=== PATIENT | female | born 1940 | race Caucasian/White ===

== ENCOUNTER → 2016-05-13 | Outpatient (CLI) | payer OTHER ==
--- NOTE | 2016-05-13 07:47 | REP ---
Clinical: Hypertension and chronic medical renal disease. Technique: Barrera scale and color Doppler evaluation of the kidneys and renal vasculature using curved array transducer. Findings: The kidneys are essentially normal in contour size and echogenicity and reniform shape without hydronephrosis, nephrolithiasis, cystic or renal mass lesion. Right kidney measures 11.0 x 4.4 x 5.1 cm . Left kidney measures 11.2 x 5.3 x 5.3 cm . Bladder is incompletely distended and grossly normal by current evaluation. Color Doppler evaluation of the renal vasculature demonstrates normal arterial wave patterns, velocities, renal aortic ratios, resistive indices and the acceleration time. No sonographic evidence for renal arterial stenosis noted. Renal vein is patent. Right Kidney: Peak arterial velocity: 143 cm/sec . Renal aortic ratio: 1.34 . Resistive indices: 0.83 - 0.84 . Acceleration times: 0.030 - 0.056 . Left kidney: Peak arterial velocity: 146 . Renal aortic ratio: 1.37 . Resistive indices: 0.76 - 0.85 . Acceleration times: 0.034 - 0.044 . Impression: Relatively normal appearance of the bilateral kidneys. No sonographic evidence to suggest renal arterial stenosis. Signed by Heber Garcia MD 05/13/2016 07:39 A
== END | disposition home or self-care (01) ==
LOC: M RAD 06:19
PROVIDERS: ATTEND Internal Medicine Nephrology
DX: I15.0 Renovascular hypertension (principal); N18.3 Chronic kidney disease, stage 3 (moderate)

== ENCOUNTER → 2018-02-21 | Outpatient (CLI) | payer OTHER | LOC: M WHC 10:14 | DX: Z12.31 Encounter for screening mammogram for malignant neoplasm of breast (principal) | CPT/HCPCS: 77067 ==

== ENCOUNTER → 2018-10-02 | Outpatient (CLI) | payer MEDICARE ==
[~2018-10-02] MED LIST: AMLO25TA PO; ASPI81TA85 PO; ATOR40TA75 PO; BASA100I SC; E-Z-GAS II EFFERVESCENT PACKET (SODIUM BICARB./CITRIC ACID/SIMETHICONE) As Ordered ONE; E-Z-HD 98% w/w 340GM SUSP BTL As Ordered ONE; E-Z-PAQUE 96% w/w SUSP 176GM BTL As Ordered ONE; FURO40TA2 PO; GABA-845 PO; INSUH10VL SC; LEVO75TA4 PO; LOSA100T50 PO; METO37.5 PO; MULTCAP PO; OMEP40CA2 PO; TRUL10IN SC; TYLE325T5 PO; VITA200016 PO
--- NOTE | 2018-10-03 16:42 | REP ---
Examination Requested: Esophagram Barium Swallow Reason For Exam/Comment: Dysphasia Esophagram: The procedure was performed Susan Rubin, OTONIEL, under the direct supervision of Dr. Garcia. The images were reviewed with Dr. Garcia. A single PA chest x-ray is submitted as a cigarette lighter repairer film. There is a nodular density in the lower lung zone at the midclavicular line that appears stable since the previous chest x-ray dated 03/23/2011. Liquid barium and gas producing granules were given in the erect position as well as liquid barium in the prone oblique position, in order to perform a double contrast esophagram examination. Oral and pharyngeal stages of the examination were unremarkable. Esophageal transport is less then prompt and efficient with tertiary waves seen throughout the entire esophagus with to-and-fro mechanism. Delayed esophageal emptying was noted. There is no esophagitis, or mucosal ring noted. There is no hiatal hernia noted. Gastroesophageal reflux was not observed throughout the course of the exam. Impression: 1. Presbyesophagus with delayed emptying. 0.9 minutes of fluoroscopy time was utilized for this procedure. Some fluoroscopic images are performed with last image hold technology. These images require no additional radiation. Reviewed by OTONIEL Machado 10/02/2018 04:02 P Electronically Signed by Heber Garcia MD 10/03/2018 04:34 P
== END ==
LOC: M RAD 08:00
PROVIDERS: ATTEND Internal Medicine Gastroenterology
DX: K22.8 Other specified diseases of esophagus (principal)

== ENCOUNTER → 2019-02-17 | Outpatient (CLI) | payer MEDICARE ==
[~2019-02-17] MED LIST changes: -E-Z-GAS II EFFERVESCENT PACKET (SODIUM BICARB./CITRIC ACID/SIMETHICONE) As Ordered ONE; -E-Z-HD 98% w/w 340GM SUSP BTL As Ordered ONE; -E-Z-PAQUE 96% w/w SUSP 176GM BTL As Ordered ONE; -OMEP40CA2 PO; +OMEP40CA97 PO
--- NOTE | 2019-02-17 16:57 | REP ---
Right ankle: Four views. History: Pain. No recent injury. Right ankle pain. Findings: There is diffuse osteopenia. Ankle mortise is intact. Anterolateral soft tissue swelling and distal calf swelling are seen. There is Achilles and plantar calcaneal spurring. No fracture or subluxation is seen. No erosive changes noted. Impression: Heel spurring and diffuse swelling. Diffuse osteopenia. No acute bony abnormality. Electronically Signed by Miguel Blakely MD 02/17/2019 04:49 P
== END ==
LOC: M ADAMS 12:26
PROVIDERS: ATTEND Physician Assistant Medical
DX: M25.571 Pain in right ankle and joints of right foot (principal); M85.80 Other specified disorders of bone density and structure, unspecified site; M77.31 Calcaneal spur, right foot

== ENCOUNTER → 2019-05-07 | Outpatient (CLI) | payer MEDICARE ==
--- NOTE | 2019-05-07 16:09 | REPMRS ---
Patient History The patient states she has not had a clinical breast exam in over a year. Family history of breast cancer at age 35 in daughter. Digital Woman Screen Mammo: May 07, 2019 - Exam #: [id number] Bilateral CC and MLO view(s) were taken. Technologist: Keri Major, Technologist Prior study comparison: February 21, 2018, bilateral digital woman screen mammo performed at [facility]. February 01, 2017, digital woman screen mammo performed at [facility]. January 02, 2016, digital woman screen mammo performed at [facility]. FINDINGS: There are scattered fibroglandular densities. There is a large dense benign calcification again noted on the left. There has been no change in the appearance of the mammogram from the prior studies. There is a mild amount of scattered fibroglandular density which is fairly symmetric. There is no interval development of dominant mass, architectural distortion, or grouped microcalcification suggestive of malignancy. 3-D tomosynthesis shows no additional findings. Assessment: BI-RADS/ACR category 2 mammogram. Benign Findings. Recommendation Routine screening mammogram of both breasts in 1 year (for women over age 40). This patient's Lifetime Breast Cancer Risk is estimated at 3.0 %. This mammogram was interpreted with the aid of an FDA-approved computer-aided dectection system. Electronically Signed By: Lorenzo Blakely MD 05/07/19 [id number]
== END ==
LOC: M WHC 13:38
PROVIDERS: ATTEND Nurse Practitioner Adult Health
DX: Z12.31 Encounter for screening mammogram for malignant neoplasm of breast (principal)

== ENCOUNTER → 2020-05-08 | Outpatient (CLI) | payer MEDICARE ==
[~2020-05-08] MED LIST changes: -ASPI81TA85 PO; +ASPI81TA86 PO
--- NOTE | 2020-05-08 09:34 | REPMRS ---
Patient History The patient states she has not had a clinical breast exam in over a year. Family history of breast cancer at age 35 in daughter. Digital Woman Screen Mammo: May 08, 2020 - Exam #: [id number] Bilateral CC and MLO view(s) were taken. Technologist: Vangie Jason Technologist Prior study comparison: May 07, 2019, bilateral digital woman screen mammo performed at [facility]. February 21, 2018, bilateral digital woman screen mammo performed at [facility]. February 01, 2017, digital woman screen mammo performed at [facility]. FINDINGS: There are scattered fibroglandular densities. The Volpara volumetric breast density category is:B. 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 This measures 19 mm. There has been no change in the appearance of the mammogram from the prior studies. There is a mild amount of scattered fibroglandular density which is fairly symmetric. There is no interval development of dominant mass, architectural distortion, or grouped microcalcification suggestive of malignancy. 3-D tomosynthesis shows no additional findings. Assessment: BI-RADS/ACR category 2 mammogram. Benign Findings. Recommendation Routine screening mammogram of both breasts in 1 year (for women over age 40). This patient's [facility] Lifetime Breast Cancer Risk is estimated at 2.8 %. This mammogram was interpreted with the aid of an FDA-approved computer-aided dectection system. Electronically Signed By: Lorenzo Blakely MD 05/08/20 0934
== END ==
LOC: M WHC 08:46
PROVIDERS: ATTEND Nurse Practitioner Adult Health
DX: Z12.31 Encounter for screening mammogram for malignant neoplasm of breast (principal)

== ENCOUNTER → 2020-09-02 | Outpatient (CLI) | payer MEDICARE ==
[~2020-09-02] MED LIST changes: +E-Z-GAS II EFFERVESCENT PACKET (SODIUM BICARB./CITRIC ACID/SIMETHICONE) As Ordered ONE; +E-Z-HD 98% w/w 340GM SUSP BTL As Ordered ONE; +E-Z-PAQUE 96% w/w SUSP 176GM BTL As Ordered ONE; +GABA-283 PO; -GABA-845 PO
--- NOTE | 2020-09-03 13:15 | REP ---
INDICATION: DYSPHAGIA. COMPARISON: None. TECHNIQUE: This procedure was performed under the direct supervision of Dr. Barrera. Images were reviewed with Dr. Barrera. Liquid barium and gas producing granules were given in the erect position as well as liquid barium in the prone oblique positions in order to perform a double contrast esophagram examination. A combination of fluoroscopy, spot films and last image hold technology was utilized. 0.5 minutes of fluoro time was utilized for this procedure. FINDINGS: A single view PA chest x-ray is submitted as a project management engineer film. There is no change compared to the previous exam performed on 10/02/2018.. During the oral and pharyngeal stages of deglutition there is laryngeal penetration. During esophageal transport there is Presbyesophagus with to and fro motion. This is unchanged compared to the previous examination performed on 10/02/2018. There is no esophagitis or stricture mucosal ring or hiatal hernia. Gastroesophageal reflux is not demonstrated on this examination. IMPRESSION: Presbyesophagus. There is no change compared to the previous examination. <Electronically signed by Arnav Chacon > 09/02/20 [id number] <Electronically signed by Willard Barrera > 09/03/20 1311
== END ==
LOC: M RAD 09:14
PROVIDERS: ATTEND Nurse Practitioner Adult Health
DX: R30.0 Dysuria (principal)

== ENCOUNTER → 2020-11-10 | Outpatient (REF) | payer MEDICARE ==
[~2020-11-10] MED LIST changes: -E-Z-GAS II EFFERVESCENT PACKET (SODIUM BICARB./CITRIC ACID/SIMETHICONE) As Ordered ONE; -E-Z-HD 98% w/w 340GM SUSP BTL As Ordered ONE; -E-Z-PAQUE 96% w/w SUSP 176GM BTL As Ordered ONE; +OMEP40CA4 PO; -OMEP40CA97 PO
== END ==
LOC: M LAB REF 14:19
PROVIDERS: ATTEND Internal Medicine Nephrology
DX: E83.42 Hypomagnesemia (principal)

== ENCOUNTER → 2021-03-12 | Outpatient (REF) | payer MEDICARE | LOC: M LAB REF 12:53 | PROVIDERS: ATTEND Internal Medicine Nephrology | DX: N18.32 Chronic kidney disease, stage 3b (principal); E83.42 Hypomagnesemia ==

== ENCOUNTER → 2021-08-12 | Outpatient (CLI) | payer MEDICARE ==
[~2021-08-12] MED LIST changes: +LOSA100T45 PO; -LOSA100T50 PO
== END ==
LOC: M WUC 12:53
PROVIDERS: ATTEND Nurse Practitioner Adult Health
DX: M16.11 Unilateral primary osteoarthritis, right hip (principal)

== ENCOUNTER → 2021-08-29 | Outpatient (CLI) | payer MEDICARE | LOC: M LABSMTC 09:14 | PROVIDERS: ATTEND Internal Medicine Gastroenterology | DX: Z01.818 Encounter for other preprocedural examination (principal); Z20.822 Contact with and (suspected) exposure to COVID-19 ==

== ENCOUNTER → 2021-11-19 | Outpatient (CLI) | payer MEDICARE | LOC: M WUC 15:08 | PROVIDERS: ATTEND Physician Assistant Medical | DX: M25.551 Pain in right hip (principal) ==

== ENCOUNTER → 2021-11-29 | Outpatient (CLI) | payer MEDICARE | LOC: M LABSMTC 09:36 | PROVIDERS: ATTEND Internal Medicine Gastroenterology | DX: Z20.822 Contact with and (suspected) exposure to COVID-19 (principal) ==

== ENCOUNTER → 2021-12-01 | Outpatient (CLI) | payer MEDICARE | LOC: M WUC 11:10 | PROVIDERS: ATTEND Nurse Practitioner Adult Health | DX: M51.36 Other intervertebral disc degeneration, lumbar region (principal) ==

== ENCOUNTER → 2021-12-10 | Outpatient (CLI) | payer MEDICARE | LOC: M SOG 08:14 | PROVIDERS: ATTEND Orthopaedic Surgery Adult Reconstructive Orthopaedic Surgery | DX: M25.551 Pain in right hip (principal) ==

== ENCOUNTER → 2022-02-22 | Outpatient (CLI) | payer MEDICARE ==
[~2022-02-22] MED LIST changes: +BAYE81TA10 PO; +CARV6.25 PO; +EQ 8650T PO; +FAMO40TA3 PO; +GABA-282 PO; +LEVO88TA3 PO; +MAGN400C PO; +MELO15TA28 PO; +TRUL0.5I SC; +VITA100017 PO; +VITMTA PO
== END ==
LOC: M LABSMTC 09:33
PROVIDERS: ATTEND Anesthesiology
DX: Z01.818 Encounter for other preprocedural examination (principal); Z11.52 Encounter for screening for COVID-19

== ENCOUNTER 2022-02-24 06:11 | Inpatient (IN) | payer MEDICARE ==
[~2022-02-24] VITALS: Ht 165.1 cm; Wt 81.5 kg
[~2022-02-24 06:11] MED LIST changes: +TRANEXAMIC ACID 100 MG/ML 10ML VIAL IV ONE; +ceFAZolin SOD 2 GM in IV 1 EA IV ONE; +oxyCODONE 5MG TAB PO ONE
[2022-02-24] MEDS ORDERED: LR 1,000 ML IV SCH ×2 (07:05→11:05)
[2022-02-24] MEDS ORDERED: TRANEXAMIC ACID 100 MG/ML 10ML VIAL As Ordered ONE (07:11)
[2022-02-24] MEDS ORDERED: BUPIVACAINE HCL 0.5% 30ML VIAL As Ordered ONE (07:11)
[2022-02-24] MEDS ORDERED: BUPIVACAINE/EPIN 0.5% 30 ML VIAL As Ordered ONE (07:11)
[2022-02-24] MEDS ORDERED: THROMBIN 20,000 UNITS KIT As Ordered ONE (07:11)
[2022-02-24] MEDS ORDERED: BUPIVACAINE LIPOSOME/PF 1.3% 20ML VIAL (13.3MG/ML)(EXPAREL) As Ordered ONE (07:12)
[2022-02-24] MEDS ORDERED: fentaNYL 100 MCG/2 ML INJECTION As Ordered ONE (07:23)
[2022-02-24] MEDS ORDERED: propofoL 200 MG/20 ML VIAL As Ordered ONE (07:24)
[2022-02-24] MEDS ORDERED: ROCURONIUM BROMIDE 50 MG/5 ML VIAL As Ordered ONE (07:25)
[2022-02-24] MEDS ORDERED: LIDOCAINE 2% INJ 100 MG/5 ML SYRINGE As Ordered ONE ×3 (07:25→11:01)
[2022-02-24] MEDS ORDERED: dexameTHASONE 4 MG/ML 1ML VIAL (J1100 PER 1MG) As Ordered ONE (08:37)
[2022-02-24] MEDS ORDERED: ONDANSETRON 4MG 2ML VIAL As Ordered ONE (08:37)
[2022-02-24] MEDS ORDERED: VANCOMYCIN 500MG/10ML VIAL As Ordered ONE (08:45)
[2022-02-24] MEDS ORDERED: LABETALOL 100MG/20ML VIAL As Ordered ONE (10:27)
[2022-02-24] MEDS ORDERED: ONDANSETRON 4MG 2ML VIAL IV PRN ×2 (10:45→11:05)
[2022-02-24] MEDS ORDERED: ACETAMINOPHEN TAB 650MG DOSE (2X325MG) PO PRN (10:45)
[2022-02-24] MEDS ORDERED: MORPHINE 4 MG/ML 1ML VIAL IV PRN (10:45)
[2022-02-24] MEDS ORDERED: fentaNYL 100 MCG/2 ML INJECTION IV PRN (11:05)
[2022-02-24] MEDS ORDERED: HYDROMORPHONE HCL 0.5 MG/ 0.5 ML SYRINGE (J1170 PER 1) IV PRN (11:05)
[2022-02-24] MEDS ORDERED: oxyCODONE 5MG TAB PO PRN (11:05)
[2022-02-24 15:15] VITALS: BP 157/57
[2022-02-24] MEDS: ceFAZolin SOD 2 GM in IV 1 EA IV SCH (15:34)
[2022-02-24] MEDS: PERCOCET 5MG/325MG TAB PO PRN (15:46)
[2022-02-24] MEDS ORDERED: BASA100I SC (16:41)
[2022-02-24] MEDS ORDERED: HOME MED LIST COMPLETE! XX SCH (16:45)
[2022-02-24] MEDS ORDERED: DEXTROSE 50% 50 ML SYRINGE IV PRN (16:50)
[2022-02-24] MEDS ORDERED: GLUCOSE 4GM CHEW TABLET PO PRN (16:50)
[2022-02-24] MEDS ORDERED: GLUCAGON INJ 1MG VIAL SC PRN (16:50)
[2022-02-24] MEDS: INSULIN LISPRO (NovoLOG) PER UNIT SC SCH (17:45)
[2022-02-24 17:46] LABS: HEMATOCRIT 33.8 % (36.0-47.0); HEMOGLOBIN 11.3 g/dl (12.0-15.5); MEAN CORPUSCULAR HEMOGLOBIN 30.3 pg (27.0-33.0); MEAN CORPUSCULAR HGB CONC 33.4 g/dl (32.0-36.5); MEAN CORPUSCULAR VOLUME 90.6 fl (80.0-96.0); PLATELET COUNT, AUTOMATED 167 10^3/uL (150-450); RED BLOOD COUNT 3.73 10^6/uL (4.00-5.40)
[2022-02-24 18:00] VITALS: BP 172/68
[2022-02-24] MEDS ORDERED: LOSARTAN 50MG TABLET PO ONE (18:20)
[2022-02-24 18:33] LABS: ALBUMIN 3.6 G/DL (3.2-5.2); BILIRUBIN,TOTAL 0.3 MG/DL (0.3-1.2); CALCIUM LEVEL 8.9 MG/DL (8.3-10.6); GLOMERULAR FILTRATION RATE 56.8 (>32); POTASSIUM SERUM 4.9 MMOL/L (3.5-5.1); TOTAL PROTEIN 6.2 G/DL (5.7-8.2)
[2022-02-24 19:09] LABS: HEMOGLOBIN A1c 6.6 % (4.0-6.0)
[2022-02-24 20:00] VITALS: BP 151/61
[2022-02-24 21:00] VITALS: BP 148/61
[2022-02-24] MEDS ORDERED: FAMOTIDINE 20 MG TAB PO SCH (21:00)
[2022-02-24] MEDS ORDERED: LEVEMIR (INSULIN DETEMIR) 1 UNITS/0.01ML SC SCH (21:00)
[2022-02-24] MEDS ORDERED: INSULIN LISPRO (NovoLOG) PER UNIT SC SCH (21:00)
[2022-02-24] MEDS: CARVedilol 6.25 MG TAB PO SCH (21:27)
[2022-02-24] MEDS: GABAPENTIN 300 MG CAP PO SCH (21:27)
[2022-02-24 22:00] VITALS: BP 149/65
[2022-02-25] MEDS ORDERED: PERCOCET 5MG/325MG TAB PO SCH
[2022-02-25] MEDS: ceFAZolin SOD 2 GM in IV 1 EA IV SCH (00:47)
[2022-02-25 02:00] VITALS: BP 160/59
[2022-02-25 06:00] VITALS: BP 162/59
[2022-02-25] MEDS ORDERED: LEVOTHYROXINE 88MCG TABLET (0.088 MG) PO SCH ×2 (06:00)
[2022-02-25 06:15] LABS: HEMATOCRIT 32.6 % (36.0-47.0); HEMOGLOBIN 10.7 g/dl (12.0-15.5); MEAN CORPUSCULAR HEMOGLOBIN 30.4 pg (27.0-33.0); MEAN CORPUSCULAR HGB CONC 32.8 g/dl (32.0-36.5); MEAN CORPUSCULAR VOLUME 92.6 fl (80.0-96.0); PLATELET COUNT, AUTOMATED 172 10^3/uL (150-450); RED BLOOD COUNT 3.52 10^6/uL (4.00-5.40); WHITE BLOOD COUNT 9.4 10^3/uL (4.0-10.0)
[2022-02-25 06:43] LABS: PROTHROMBIN TIME 13.4 SECONDS (12.5-14.5)
[2022-02-25 07:01] LABS: ALBUMIN 3.6 G/DL (3.2-5.2); BILIRUBIN,TOTAL 0.3 MG/DL (0.3-1.2); CALCIUM LEVEL 8.8 MG/DL (8.3-10.6); CREATININE FOR GFR 1.04 MG/DL (0.55-1.30); GLOMERULAR FILTRATION RATE 54.3 (>32); PHOSPHORUS LEVEL 4.4 MG/DL (2.4-5.1); POTASSIUM SERUM 4.6 MMOL/L (3.5-5.1)
[2022-02-25] MEDS: INSULIN LISPRO (NovoLOG) PER UNIT SC SCH ×4 (07:30→12:38)
[2022-02-25] MEDS: CARVedilol 6.25 MG TAB PO SCH (07:37)
[2022-02-25] MEDS: GABAPENTIN 300 MG CAP PO SCH (07:37)
[2022-02-25] MEDS: PERCOCET 5MG/325MG TAB PO PRN (07:39)
[2022-02-25 07:40] VITALS: BP 162/59
[2022-02-25] MEDS ORDERED: PERCOCET 5MG/325MG TAB PO ONE (08:00)
[2022-02-25] MEDS ORDERED: SELF1KIT MC (08:45)
[2022-02-25] MEDS ORDERED: SENO8.6T10 PO (08:45)
[2022-02-25] MEDS ORDERED: AMLO1TAB25 PO ×2 (08:45→10:29)
[2022-02-25] MEDS ORDERED: PERCOCET PO (08:45)
[2022-02-25] MEDS ORDERED: ASPIRIN 81MG ENTERIC TABLET PO SCH (09:00)
[2022-02-25] MEDS ORDERED: MELOXICAM (MOBIC) 7.5 MG TAB PO SCH (09:00)
[2022-02-25] MEDS ORDERED: FUROSEMIDE 40 MG TAB PO SCH (09:00)
[2022-02-25] MEDS ORDERED: OMEPRAZOLE 20MG CAP PO SCH (09:00)
[2022-02-25] MEDS ORDERED: LOSARTAN 50MG TABLET PO SCH (09:00)
[2022-02-25] MEDS ORDERED: MULTIVITAMINS/MINERALS THERAP 1 TAB PO SCH (09:00)
[2022-02-25] MEDS ORDERED: MAGNESIUM OXIDE 400MG TAB (MAG-OX) PO SCH (09:00)
[2022-02-25] MEDS ORDERED: PERC5TAB12 PO (10:29)
[2022-02-25] MEDS ORDERED: SENN-23 PO (10:31)
[2022-02-25] MEDS ORDERED: MIRA3350 PO (10:31)
[2022-02-25] MEDS ORDERED: ATORVASTATIN 20 MG TAB PO SCH (21:00)
== END 2022-02-25 13:45 | disposition home health service (06) | DRG 517 ==
LOC: M SDC 06:11 → M MS5PR 06:12 → OBSVTOIN 16:46 → M SDC 02-25 13:45
PROVIDERS: ADMIT Orthopaedic Surgery; ATTEND General Practice
PROC: 01NB0ZZ Release Lumbar Nerve, Open Approach (ICD-10-PCS; principal; 2022-02-24 07:30)
DX: M48.062 Spinal stenosis, lumbar region with neurogenic claudication (principal); E03.9 Hypothyroidism, unspecified; K29.50 Unspecified chronic gastritis without bleeding; K21.00 Gastro-esophageal reflux disease with esophagitis, without bleeding; E11.22 Type 2 diabetes mellitus with diabetic chronic kidney disease; E11.42 Type 2 diabetes mellitus with diabetic polyneuropathy; N18.9 Chronic kidney disease, unspecified; I10 Essential (primary) hypertension; E78.2 Mixed hyperlipidemia; I65.23 Occlusion and stenosis of bilateral carotid arteries; E11.51 Type 2 diabetes mellitus with diabetic peripheral angiopathy without gangrene; M19.90 Unspecified osteoarthritis, unspecified site; E66.9 Obesity, unspecified; K22.0 Achalasia of cardia; Z79.4 Long term (current) use of insulin; Z79.890 Hormone replacement therapy; Z79.82 Long term (current) use of aspirin; Z79.899 Other long term (current) drug therapy; S00.11XA Contusion of right eyelid and periocular area, initial encounter; Y92.012 Bathroom of single-family (private) house as the place of occurrence of the external cause; W22.09XA Striking against other stationary object, initial encounter; Y93.9 Activity, unspecified; Z68.29 Body mass index [BMI] 29.0-29.9, adult

== ENCOUNTER → 2022-04-15 | Outpatient (CLI) | payer MEDICARE ==
[~2022-04-15] MED LIST changes: +AMLO1TAB25 PO; +MIRA3350 PO; +PERC5TAB12 PO; +PERCOCET PO; +SELF1KIT MC; +SENN-23 PO; +SENO8.6T10 PO; -TRANEXAMIC ACID 100 MG/ML 10ML VIAL IV ONE; -ceFAZolin SOD 2 GM in IV 1 EA IV ONE; -oxyCODONE 5MG TAB PO ONE
== END ==
LOC: M WHC 12:15
PROVIDERS: ATTEND Nurse Practitioner Adult Health
DX: Z12.31 Encounter for screening mammogram for malignant neoplasm of breast (principal)

== ENCOUNTER → 2024-06-22 | Outpatient (CLI) | payer OTHER ==
[~2024-06-22] MED LIST changes: +GABA-1172 PO; -GABA-282 PO; -GABA-283 PO; +GABA-284 PO; -LOSA100T45 PO; +LOSA100T46 PO
== END ==
LOC: M WHC 13:28
PROVIDERS: ATTEND Physician Assistant
DX: I65.23 Occlusion and stenosis of bilateral carotid arteries (principal)

== ENCOUNTER 2024-12-15 12:06 | Emergency (ER) | payer OTHER, MEDICARE ==
[~2024-12-15] VITALS: Ht 165.1 cm; Wt 80.9 kg
[2024-12-15] MEDS: ACETAMINOPHEN 500 MG TAB PO ONE (13:31)
[2024-12-15] MEDS ORDERED: OXYC1TAB23 PO (16:20)
[2024-12-15] MEDS: PERCOCET 5MG/325MG TAB PO ONE (16:55)
[2024-12-15 17:00] VITALS: BP 170/66; TEMP 97; O2SAT 99
== END 2024-12-15 17:01 | disposition home or self-care (01) ==
LOC: M ED 12:06
DX: S42.211A Unspecified displaced fracture of surgical neck of right humerus, initial encounter for closed fracture (principal); S83.91XA Sprain of unspecified site of right knee, initial encounter; S00.83XA Contusion of other part of head, initial encounter; Y92.019 Unspecified place in single-family (private) house as the place of occurrence of the external cause; Y93.9 Activity, unspecified; Y99.9 Unspecified external cause status; W01.0XXA Fall on same level from slipping, tripping and stumbling without subsequent striking against object, initial encounter; I10 Essential (primary) hypertension; E11.9 Type 2 diabetes mellitus without complications; E03.9 Hypothyroidism, unspecified; Z79.1 Long term (current) use of non-steroidal anti-inflammatories (NSAID); Z79.4 Long term (current) use of insulin; Z79.899 Other long term (current) drug therapy

== ENCOUNTER → 2025-01-14 | Outpatient (CLI) | payer MEDICARE ==
[~2025-01-14] MED LIST changes: +OXYC1TAB23 PO
== END ==
LOC: M PLAIMG 11:18
PROVIDERS: ATTEND Nurse Practitioner Adult Health
DX: R55 Syncope and collapse (principal); R01.1 Cardiac murmur, unspecified; I08.3 Combined rheumatic disorders of mitral, aortic and tricuspid valves

== ENCOUNTER → 2025-01-17 | Outpatient (REF) | payer MEDICARE ==
[2025-01-17 14:10] LABS: APPEARANCE, URINE CLEAR (CLEAR); BACTERIA, URINE AUTO NEGATIVE (NEGATIVE); BILIRUBIN, URINE AUTO NEGATIVE (NEGATIVE); BLOOD, URINE BLOOD NEGATIVE (NEGATIVE); GLUCOSE, URINE (UA) AUTO NEGATIVE (NEGATIVE); KETONE, URINE AUTO NEGATIVE (NEGATIVE); LEUKOCYTE ESTERASE, URINE AUTO NEGATIVE (NEGATIVE); NITRITE, URINE AUTO NEGATIVE (NEGATIVE); PROTEIN, URINE AUTO NEGATIVE (NEGATIVE); RBC, URINE AUTO 0 /HPF (0-3); SPECIFIC GRAVITY URINE AUTO 1.011 (1.002-1.035); SQUAMOUS EPITHELIAL CELL UR AU 0 /HPF (0-6); UROBILINOGEN, URINE AUTO 0.2 mg/dL (0.0-2.0); WBC, URINE AUTO 0 /HPF (0-3)
[2025-01-17 18:45] LABS: CREATININE, URINE 59.9 MG/DL; MALB URINE SIEMENS 3.0 MG/L
== END ==
LOC: M LAB REF 12:50
PROVIDERS: ATTEND Nurse Practitioner Adult Health
DX: E11.21 Type 2 diabetes mellitus with diabetic nephropathy (principal); Z79.899 Other long term (current) drug therapy

== ENCOUNTER → 2025-03-05 | Outpatient (CLI) | payer MEDICARE ==
[~2025-03-05] MED LIST changes: -EQ 8650T PO; +[UNRECOGNIZED DRUG - CODE] PO
== END ==
LOC: M WHC 09:38
PROVIDERS: ATTEND Nurse Practitioner Adult Health
DX: M81.0 Age-related osteoporosis without current pathological fracture (principal)